=== PATIENT | male | born 1960 | race Caucasian/White ===

== ENCOUNTER → 2017-02-18 | Outpatient (CLI) | payer BC | LOC: RAD 09:16 | DX: M79.671 Pain in right foot (principal) ==

== ENCOUNTER → 2020-09-10 | Outpatient (CLI) | payer BC ==
[2020-09-10 10:21] LABS: EOS # 0.3 (0.04-0.40); EOS % 4.7 % (0.0-4.0); HEMATOCRIT 48.5 % (42.0-52.0); HEMOGLOBIN 15.9 g/dL (13.5-18.0); LYMPH# 2.2 (1.50-4.00); MEAN CELL VOLUME 95 fl (78-100); MEAN CORPUSCULAR HEMOGLOBIN 31 pg (27-31); MEAN CORPUSCULAR HGB CONC 33 g/dL (33-37); MEAN PLATELET VOLUME 8.6 fl (7.4-10.4); MONO # 0.6 (0.20-0.80); NEU # 4.1 (1.40-6.50); PLATELET COUNT 266 K/mm3 (130-400); RED BLOOD COUNT 5.13 M/mm3 (4.20-5.60); RED CELL DISTRIBUTION WIDTH 13.3 % (11.5-14.5); WHITE BLOOD COUNT 7.3 K/mm3 (4.8-10.8)
[2020-09-10 10:40] LABS: ALBUMIN 4.3 g/dL (3.5-5.0); POTASSIUM 4.1 mmol/L (3.5-5.1)
[2020-09-10 10:41] LABS: CALCIUM 8.8 mg/dL (8.3-10.5)
[2020-09-10 10:42] LABS: TOTAL PROTEIN 7.4 g/dL (6.4-8.3)
[2020-09-10 10:44] LABS: TOTAL BILIRUBIN 1.3 mg/dL (0.2-1.2)
[2020-09-10 10:49] LABS: MAGNESIUM 2.25 mg/dL (1.60-2.60)
[2020-09-10 11:16] LABS: URINE APPEARANCE CLEAR; URINE BILIRUBIN NEGATIVE (NEGATIVE); URINE BLOOD NEGATIVE (NEGATIVE); URINE COLOR YELLOW; URINE GLUCOSE NEGATIVE (NEGATIVE); URINE KETONE NEGATIVE (NEGATIVE); URINE LEUKOCYTE ESTERASE NEGATIVE (NEGATIVE); URINE MUCUS PRESENT (NOT PRESENT); URINE NITRATE NEGATIVE (NEGATIVE); URINE PROTEIN(semi-quant) NEGATIVE (NEGATIVE); URINE UROBILINOGEN NORMAL (NORMAL); URINE WBC 0-1 /hpf (0-3)
== END ==
LOC: LAB 10:06
PROVIDERS: Internal Medicine
DX: Z01.818 Encounter for other preprocedural examination (principal); M17.0 Bilateral primary osteoarthritis of knee

== ENCOUNTER → 2021-07-24 | Outpatient (REF) | LOC: LAB 15:47 | DX: Z00.00 Encounter for general adult medical examination without abnormal findings (principal) ==

== ENCOUNTER → 2024-04-18 | Outpatient (CLI) | payer BC ==
[2024-04-18 16:00] LABS: BASO # 0.01 K/mm3 (0.02-0.10); EOS % 2.2 % (0.0-4.0); HEMATOCRIT 48.4 % (42.0-52.0); HEMOGLOBIN 15.8 g/dL (13.5-18.0); LYMPH# 2.36 K/mm3 (1.50-4.00); MEAN CELL VOLUME 96 fl (78-100); MEAN CORPUSCULAR HEMOGLOBIN 31 pg (27-31); MEAN CORPUSCULAR HGB CONC 33 g/dL (33-37); MEAN PLATELET VOLUME 10.6 fl (7.4-10.4); MONO # 0.49 K/mm3 (0.20-0.80); NEU # 5.94 K/mm3 (1.40-6.50); PLATELET COUNT 185 K/mm3 (130-400); RED BLOOD COUNT 5.03 M/mm3 (4.20-5.60); RED CELL DISTRIBUTION WIDTH 13.6 % (11.5-14.5); WHITE BLOOD COUNT 9.1 K/mm3 (4.8-10.8)
[2024-04-18 16:02] LABS: ALBUMIN 4.4 g/dL (3.4-4.8)
[2024-04-18 16:03] LABS: CALCIUM 9.7 mg/dL (8.3-10.5)
[2024-04-18 16:04] LABS: TOTAL PROTEIN 7.1 g/dL (6.2-8.1)
[2024-04-18 16:06] LABS: TOTAL BILIRUBIN 2.9 mg/dL (0.2-1.2)
[2024-04-18 16:18] LABS: D-DIMER 0.87 mg/L FEU (0.15-0.50)
== END ==
LOC: LAB 15:24
PROVIDERS: Internal Medicine
DX: R06.00 Dyspnea, unspecified (principal)

== ENCOUNTER → 2024-05-06 | Outpatient (CLI) | payer BC ==
[2024-05-06 08:33] LABS: BASO # 0.02 K/mm3 (0.02-0.10); EOS # 0.25 K/mm3 (0.04-0.40); EOS % 2.8 % (0.0-4.0); HEMATOCRIT 47.4 % (42.0-52.0); HEMOGLOBIN 15.5 g/dL (13.5-18.0); LYMPH# 1.76 K/mm3 (1.50-4.00); MEAN CELL VOLUME 96 fl (78-100); MEAN CORPUSCULAR HEMOGLOBIN 32 pg (27-31); MEAN CORPUSCULAR HGB CONC 33 g/dL (33-37); MEAN PLATELET VOLUME 10.1 fl (7.4-10.4); MONO # 0.31 K/mm3 (0.20-0.80); NEU # 6.55 K/mm3 (1.40-6.50); PLATELET COUNT 164 K/mm3 (130-400); RED BLOOD COUNT 4.92 M/mm3 (4.20-5.60); RED CELL DISTRIBUTION WIDTH 14.2 % (11.5-14.5); WHITE BLOOD COUNT 8.9 K/mm3 (4.8-10.8)
[2024-05-06 08:47] LABS: ALBUMIN 4.4 g/dL (3.4-4.8)
[2024-05-06 08:49] LABS: CALCIUM 9.4 mg/dL (8.3-10.5)
[2024-05-06 08:50] LABS: TOTAL PROTEIN 6.6 g/dL (6.2-8.1)
[2024-05-06 08:56] LABS: MAGNESIUM 2.24 mg/dL (1.60-2.60)
== END ==
LOC: LAB 08:21
PROVIDERS: Internal Medicine
DX: I50.1 Left ventricular failure, unspecified (principal)

== ENCOUNTER → 2024-06-29 | Outpatient (CLI) | payer BC ==
[2024-06-29 13:20] LABS: BASO # 0.01 K/mm3 (0.02-0.10); EOS # 0.16 K/mm3 (0.04-0.40); EOS % 1.9 % (0.0-4.0); HEMATOCRIT 49.3 % (42.0-52.0); HEMOGLOBIN 16.2 g/dL (13.5-18.0); LYMPH# 2.17 K/mm3 (1.50-4.00); MEAN CELL VOLUME 95 fl (78-100); MEAN CORPUSCULAR HEMOGLOBIN 31 pg (27-31); MEAN CORPUSCULAR HGB CONC 33 g/dL (33-37); MONO # 0.29 K/mm3 (0.20-0.80); PLATELET COUNT 175 K/mm3 (130-400); RED BLOOD COUNT 5.19 M/mm3 (4.20-5.60); RED CELL DISTRIBUTION WIDTH 14.1 % (11.5-14.5); WHITE BLOOD COUNT 8.6 K/mm3 (4.8-10.8)
[2024-06-29 13:32] LABS: ALBUMIN 4.3 g/dL (3.4-4.8)
[2024-06-29 13:34] LABS: CALCIUM 9.2 mg/dL (8.3-10.5)
[2024-06-29 13:35] LABS: TOTAL PROTEIN 6.7 g/dL (6.2-8.1)
[2024-06-29 13:37] LABS: TOTAL BILIRUBIN 2.6 mg/dL (0.2-1.2)
[2024-06-29 13:41] LABS: MAGNESIUM 2.17 mg/dL (1.60-2.60)
[2024-06-29 14:02] LABS: PROTHROMBIN TIME 10.5 SECONDS (9.0-12.0)
[2024-06-29 14:59] LABS: URINE APPEARANCE CLEAR (CLEAR); URINE BILIRUBIN NEGATIVE (NEGATIVE); URINE BLOOD NEGATIVE (NEGATIVE); URINE COLOR YELLOW (YELLOW); URINE KETONE NEGATIVE (NEGATIVE); URINE LEUKOCYTE ESTERASE NEGATIVE (NEGATIVE); URINE NITRATE NEGATIVE (NEGATIVE); URINE PROTEIN(semi-quant) NEGATIVE (NEGATIVE); URINE WBC 0-1 /hpf (0-3)
[2024-06-29 15:02] LABS: URINE GLUCOSE 3+ (NEGATIVE)
== END ==
LOC: LAB 12:50
PROVIDERS: Internal Medicine
DX: Z01.818 Encounter for other preprocedural examination (principal)

== ENCOUNTER → 2024-08-23 | Outpatient (CLI) | payer BC ==
[2024-08-23 11:11] LABS: SODIUM 140 mmol/L (136-145)
[2024-08-23 11:12] LABS: ALBUMIN 4.3 g/dL (3.4-4.8)
[2024-08-23 11:13] LABS: CALCIUM 9.1 mg/dL (8.3-10.5)
[2024-08-23 11:14] LABS: GLUCOSE 110 mg/dL (75-110)
[2024-08-23 11:15] LABS: BASO # 0.02 K/mm3 (0.02-0.10); CARBON DIOXIDE 27 mmol/L (23-31); EOS # 0.31 K/mm3 (0.04-0.40); EOS % 3.1 % (0.0-4.0); HEMATOCRIT 46.4 % (42.0-52.0); HEMOGLOBIN 15.1 g/dL (13.5-18.0); LYMPH# 2.06 K/mm3 (1.50-4.00); MEAN CELL VOLUME 97 fl (78-100); MEAN CORPUSCULAR HEMOGLOBIN 32 pg (27-31); MEAN CORPUSCULAR HGB CONC 33 g/dL (33-37); MEAN PLATELET VOLUME 9.9 fl (7.4-10.4); MONO # 0.31 K/mm3 (0.20-0.80); NEU # 7.31 K/mm3 (1.40-6.50); PLATELET COUNT 196 K/mm3 (130-400); RED BLOOD COUNT 4.79 M/mm3 (4.20-5.60); RED CELL DISTRIBUTION WIDTH 15.7 % (11.5-14.5); WHITE BLOOD COUNT 10.1 K/mm3 (4.8-10.8)
[2024-08-23 11:16] LABS: TOTAL BILIRUBIN 2.1 mg/dL (0.2-1.2)
[2024-08-23 11:19] LABS: AST-SGOT 31 U/L (5-34)
[2024-08-23 11:21] LABS: ALT/SGPT 49 U/L (0-55); MAGNESIUM 2.07 mg/dL (1.60-2.60)
[2024-08-23 23:23] LABS: FOLATE (FOLIC ACID) 15.4 ng/mL (2.0-20.0)
== END ==
LOC: LAB 10:48
PROVIDERS: Internal Medicine
DX: Z12.5 Encounter for screening for malignant neoplasm of prostate (principal); I50.1 Left ventricular failure, unspecified; E78.2 Mixed hyperlipidemia; M10.00 Idiopathic gout, unspecified site; K90.9 Intestinal malabsorption, unspecified

== ENCOUNTER → 2025-01-11 | Outpatient (CLI) | payer BC ==
[2025-01-11 17:46] LABS: BASO # 0.02 K/mm3 (0.02-0.10); EOS # 0.14 K/mm3 (0.04-0.40); EOS % 1.4 % (0.0-4.0); HEMATOCRIT 41.7 % (42.0-52.0); HEMOGLOBIN 13.2 g/dL (13.5-18.0); LYMPH# 2.44 K/mm3 (1.50-4.00); MEAN CELL VOLUME 98 fl (78-100); MEAN CORPUSCULAR HEMOGLOBIN 31 pg (27-31); MEAN CORPUSCULAR HGB CONC 32 g/dL (33-37); MEAN PLATELET VOLUME 10.5 fl (7.4-10.4); MONO # 0.36 K/mm3 (0.20-0.80); NEU # 6.87 K/mm3 (1.40-6.50); PLATELET COUNT 329 K/mm3 (130-400); RED BLOOD COUNT 4.24 M/mm3 (4.20-5.60); RED CELL DISTRIBUTION WIDTH 15.9 % (11.5-14.5); WHITE BLOOD COUNT 9.9 K/mm3 (4.8-10.8)
[2025-01-11 17:50] LABS: ALBUMIN 3.7 g/dL (3.4-4.8)
[2025-01-11 17:51] LABS: CALCIUM 9.1 mg/dL (8.3-10.5)
[2025-01-11 17:52] LABS: TOTAL PROTEIN 7.6 g/dL (6.2-8.1)
[2025-01-11 17:54] LABS: TOTAL BILIRUBIN 1.2 mg/dL (0.2-1.2)
== END ==
LOC: LAB 17:29
PROVIDERS: Internal Medicine
DX: J18.9 Pneumonia, unspecified organism (principal)